=== PATIENT | female | born 1985 | race Two or more races ===

== ENCOUNTER → 2025-02-04 | Outpatient (CLI) | payer BC, SELFPAY ==
--- NOTE | 2025-02-04 09:48 | XR_ITS ---
Examination: MRI of brain without intravenous contrast. MRI brain with intravenous contrast. Date and time of exam: February 04, 2025, 1002 hours, comparison October 05, 2023 INDICATIONS: Diagnosis multiple sclerosis 2017, weakness left side of the body numbness in the hands Technique: Multiple axial and sagittal images of the brain to been obtained. Siemens high-resolution 1.52 Kaye short bore scanner utilized. Sagittal sections, T1 weighted images, TR 500, TE 14, are performed. Axial sections proton-density and T2-weighted images have been obtained. Inversion recovery axial images, TR 9260, TE 111, TR 2500. Diffusion weighted images, axial sections, TR 4800, TE 128, B value 1000. Axial sections, ADC map, TR 4800, TE 128. Axial and coronal images were also obtained post 20 cc gadolinium administered intravenously. Findings:: Enlargement of the sella turcica is not present. The optic chiasm and infundibular stalk are not remarkable. There is no localized enlargement of the medulla or carlyn. Fourth ventricle and cerebellar tonsils appear normal in position. No subacute area of hemorrhage density is seen. Fourth ventricle is midline. Mass in the cerebellopontine angle region is not evident. 7th and 8th nerve complexes exhibit symmetry Globes are symmetrical Orbital musculature including medial lateral rectus muscles do not exhibit abnormality Increased white matter signal is again noted, no major change in prominent foci increased signal in the white matter Effacement of the cortical sulcal markings is not identified. Mass effect upon the ventricular system is not identified. Diffusion-weighted images demonstrate no focus of restricted diffusion Contrast images demonstrate no abnormal enhancement Impression: No major change in prominent punctate foci of increased signal in the white matter compared to October 05, 2023, demyelinating disease
--- NOTE | 2025-02-04 10:15 | XR_ITS ---
EXAMINATION: MRI knee cervical spine without intravenous contrast MRI cervical spine with intravenous contrast Date and time of exam: February 04, 2025, 1002 hours INDICATIONS: Multiple sclerosis diagnosis 2017 numbness left side of the face numbness in the hands Technique: Multiple MRI axial and sagittal sections cervical spine Sagittal T2-weighted images, TR 3500, TE 118 T1 weighted transverse sections, TR 688 T8.5, T2-weighted sagittal sections T1 weighted sagittal sections TR 621, TE 30 T2 axial sections, TR 4, 190, TE 84. Post contrast images, 20 cc gadolinium axial sagittal images Findings: Adequate alignment cervical vertebral bodies No cervical fracture No focal cervical disc protrusion Precontrast images demonstrate increased signal in the cervical cord similar to the October 05, 2023 exam Postcontrast images do not demonstrate definite abnormal enhancement in the cervical cord IMPRESSION: There remains increased signal in the cervical cord stable since the prior exam, consistent with demyelinating disease
== END | disposition home or self-care (01) ==
PROVIDERS: PCP Internal Medicine; Referring Provider Psychiatry & Neurology Neurology; Visit Provider Psychiatry & Neurology Neurology
DX: R90.82 White matter disease, unspecified (principal)
CPT/HCPCS: 70553; 72156; A9577